=== PATIENT | female | born 1975 | race Asian ===

== ENCOUNTER 2016-12-14 18:48 | Emergency (ER) | payer OTHER ==
[~2016-12-14] VITALS: Ht 157.5 cm; Wt 65.9 kg
[2016-12-14] MEDS ORDERED: BIRTH CONTROL PO (18:50)
[2016-12-14 19:20] LABS: APPEARANCE,URINE CLOUDY (CLEAR); GLUCOSE, URINE (UA) NEGATIVE (NEGATIVE); KETONES,URINE NEGATIVE (NEGATIVE); LEUKOCYTE ESTERASE ,URINE MODERATE (NEGATIVE); OCCULT BLOOD,URINE NEGATIVE (NEGATIVE); PROTEIN,URINE NEGATIVE (NEGATIVE)
[2016-12-14 19:21] LABS: ADD UA MICROSCOPIC YES
[2016-12-14 19:26] LABS: RBC,URINE 0-2 /HPF (0-2); SQUAMOUS EPITHELIAL CELL,UR Many /LPF (None Seen); WBC,URINE 26-50 /HPF (0-5)
[2016-12-14] MEDS ORDERED: DESO1TAB4 PO (19:37)
[2016-12-14] MEDS ORDERED: CefTRIAXone SODIUM 1 GM/VIAL IM ONE (19:45)
[2016-12-14] MEDS ORDERED: HYDROCODONE/ACETAMINOPHEN 10-325 MG TABLET PO ONE (19:45)
[2016-12-14] MEDS ORDERED: LIDOCAINE HCL/PF 1% 2 ML VIAL IM ONE (19:45)
[2016-12-14 20:13] VITALS: BP 125/76
== END 2016-12-14 20:15 | disposition home or self-care (01) ==
LOC: EMS 18:49
DX: N39.0 Urinary tract infection, site not specified (principal); Z90.49 Acquired absence of other specified parts of digestive tract
CPT/HCPCS: 81001; 84703; 87077; 87086; 96372; 99284; J0696; J3490

== ENCOUNTER 2025-09-13 18:38 | Emergency (ER) | payer OTHER ==
[~2025-09-13] VITALS: Ht 157.5 cm; Wt 73.0 kg
[~2025-09-13 18:38] MED LIST: DESO1TAB4 PO
[2025-09-13 18:41] VITALS: BP 156/85; PULSE 95; TEMP 98.2; O2SAT 100
[2025-09-13] MEDS: LIDOCAINE 1% 10 ML VIAL ID ONE (23:42)
[2025-09-14 03:34] VITALS: RESP 16
== END 2025-09-14 03:34 | disposition home or self-care (01) ==
LOC: EMS 19:14
DX: L02.11 Cutaneous abscess of neck (principal); Z90.49 Acquired absence of other specified parts of digestive tract; Z79.899 Other long term (current) drug therapy
CPT/HCPCS: 99284; 10060; J3490